=== PATIENT | male | born 1980 | race Hispanic/Latino ===

== ENCOUNTER 2020-05-20 12:31 | Emergency (ER) | payer OTHER ==
--- NOTE | 2020-05-20 13:02 | Event Note ---
ED Screening Note Date of service: 05/20/20 Time: 13:02 ED Screening Note: Complains of cough, shortness of breath, body aches x1 week Denies past medical history This initial assessment/diagnostic orders/clinical plan/treatment(s) is/are subject to change based on patients health status, clinical progression and re- assessment by fellow clinical providers in the ED. Further treatment and workup at subsequent clinical providers discretion. Patient/guardian urged not to elope from the ED as their condition may be serious if not clinically assessed and managed. Initial orders include: Labs Chest x-ray
[2020-05-20 13:03] VITALS: BP 173/77
[2020-05-20 13:25] LABS: Basophils % (Auto) 0.4 % (0.0-1.8); Eosinophils # (Auto) 0.1 K/mm3 (0.0-0.4); Eosinophils % (Auto) 1.9 % (0.0-4.3); Hematocrit 47.4 % (35.5-45.6); Hemoglobin 16.7 gm/dl (11.8-15.2); Lymphocytes # (Auto) 2.2 K/mm3 (1.2-5.4); Lymphocytes % (Auto) 31.6 % (13.4-35.0); Mean Corpuscular HGB Conc 35 % (32-34); Mean Corpuscular Volume 88 fl (84-94); Monocytes # (Auto) 0.6 K/mm3 (0.0-0.8); Monocytes % (Auto) 8.5 % (0.0-7.3); Platelet Count 173 K/mm3 (140-440); Red Blood Count 5.41 M/mm3 (3.65-5.03)
[2020-05-20 13:41] LABS: Alanine Aminotransferase 72 units/L (7-56); Albumin 4.8 g/dL (3.9-5); BUN/Creatinine Ratio 18; Blood Urea Nitrogen 16 mg/dL (9-20); Hemolysis Index 19
--- NOTE | 2020-05-20 14:41 | XRay Report ---
CHEST 2 VIEWS INDICATION / CLINICAL INFORMATION: shortness of breath. COMPARISON: None available. FINDINGS: SUPPORT DEVICES: None. HEART / MEDIASTINUM: No significant abnormality. LUNGS / PLEURA: No significant pulmonary or pleural abnormality. No pneumothorax. ADDITIONAL FINDINGS: No significant additional findings. IMPRESSION: 1. No acute findings. Signer Name: Edgardo Gayle MD Signed: 05/20/2020 2:37 PM Workstation Name: [id number]
--- NOTE | 2020-05-20 15:34 | Emergency Department Report ---
Minor Respiratory - HPI Chief Complaint: Upper Respiratory Infection Stated Complaint: BODY PAIN/WEAK Time Seen by Provider: 05/20/20 13:01 Duration: 3 Days Pain Location: Chest Minor Respiratory: Yes Sore Throat, Yes Cough, Yes Sick Contacts, No Able to Tolerate Fluids, No Ear Pain, No Hemoptysis, No Chest Pain, No Fever ED Review of Systems ROS: Stated complaint: BODY PAIN/WEAK Other details as noted in HPI Comment: All other systems reviewed and negative ED Past Medical Hx - Past Medical History Previous Medical History?: No - Surgical History Past Surgical History?: No - Medications Home Medications: Home Medications Medication Instructions Recorded Confirmed Last Taken Type Albuterol Mdi (or & Nicu Only) 1 puff IH Q4-6H PRN #1 inha 05/20/20 Unknown Rx [ProAir HFA Inhaler] Benzonatate [Tessalon Perles] 100 mg PO Q8HR #20 capsule 05/20/20 Unknown Rx dexAMETHasone [Decadron] 4 mg PO Q12H #3 tablet 05/20/20 Unknown Rx Minor Respiratory Exam - Exam General: Vital signs noted. No distress. Alert and acting appropriately. HEENT: Yes Moist Mucous Membranes, Yes Rhinorrhea (nasal congestion), No Pharyngeal Erythema, No Pharyngeal Exudates, No Conjuctival Injection, No Frontal Tenderness, No Maxillary Tenderness Ear: Neither TM Bulge, Neither TM Erythema, Neither EAC Pain, Neither EAC Discharge Neck: Yes Supple, No Adenopathy Lungs: Yes Good Air Exchange, Yes Cough, No Wheezes, No Ronchi, No Stridor, No Labored Respirations, No Retractions, No Use of Accessory Muscles, No Other Abnormal Lung Sounds Heart: Yes Regular, No Murmur Abdomen: Yes Normal Bowel Sounds, No Tenderness, No Peritoneal Signs Skin: No Rash, No Edema Neurologic: Alert and oriented, no deficits. Musculoskeletal: Unremarkable. ED Course Vital Signs 05/20/20 05/20/20 13:00 13:03 Temperature 97.8 F Pulse Rate 72 Respiratory 18 Rate Blood Pressure 173/77 [Right] O2 Sat by Pulse 100 Oximetry ED Medical Decision Making - Lab Data Result diagrams: 05/20/20 13:05 05/20/20 13:05 - Radiology Data Radiology results: report reviewed CXR Clear Critical care attestation.: If time is entered above; I have spent that time in minutes in the direct care of this critically ill patient, excluding procedure time. ED Disposition Clinical Impression: Cough, Viral syndrome, Normal chest x-ray Disposition: - TO HOME OR SELFCARE Is pt being admited?: No Does the pt Need Aspirin: No Condition: Stable Instructions: Viral Respiratory Infection, [id number], Cool Mist Vaporizer, Cough, Adult, Cough, Adult, [id number] Referrals: PRIMARY CARE, [Primary Care Provider] - 3-5 Days [facility] [Provider Group] - 3-5 Days
== END 2020-05-20 16:15 | disposition home or self-care (01) ==
LOC: ED 12:31
DX: B34.9 Viral infection, unspecified (principal); R05 Cough; Z79.899 Other long term (current) drug therapy
CPT/HCPCS: 36415; 71046; 80053; 85025; 93005